=== PATIENT | female | born 1975 | race Caucasian/White ===

== ENCOUNTER 2018-01-10 14:29 | Emergency (ER) | payer OTHER ==
[2018-01-10 15:44] LABS: Urine Appearance Clear; Urine Blood 1+ (Negative); Urine Color Yellow; Urine Ketones Negative (Negative); Urine Protein Negative (Negative); Urine Red Blood Cell Absent (Absent); Urine Specific Gravity 1.011 (1.010-1.030); Urine Urobilinogen Negative (Negative); Urine White Blood Cell Absent (Absent)
--- NOTE | 2018-01-10 16:18 | ED ---
Abdominal Pain/Female - HPI Summary HPI Summary: This patient is a 42 year old F presenting to [facility] with a chief complaint of RUQ pain since last week. Patient states she has had episodes of RUQ pain for months but typically resolves after approximately 12 hours. She thinks it is her gallbladder. Yesterday evening she experienced dizziness as well as nausea, vomiting, and diarrhea. She describes it as a waxing sharp pain, which is aggravated by the consumption of fast food. The patient states a Hx of appendicitis and says this feels similar, but has no prior Hx involving her gallbladder. Pt thinks its her gallbladder. Dizzy room spinning vomiting diarrhea always in the same spot. Usually goes away and the pain has been occurring for a week. The pain waxes and wanes. Sharp Pain increases when she eats, typically fast food. She has had appendicitis but has neer had anything with the gallbladder. - History of Current Complaint Chief Complaint: EDJennifer Stated Complaint: ABD PAIN Time Seen by Provider: 01/10/18 16:10 Hx Obtained From: Patient Onset/Duration: Gradual Onset, Lasting Days, Still Present Severity Initially: Moderate Severity Currently: Moderate Pain Intensity: 6 Pain Scale Used: 0-10 Numeric Location: Discrete At: RUQ Radiates: No Character: Sharp Allergies/Adverse Reactions: Allergies Allergy/AdvReac Type Severity Reaction Status Date / Time Penicillins Allergy Anaphylatic Verified 01/10/18 14:34 Shock PMH/Surg Hx/FS Hx/Imm Hx Cardiovascular History: Denies: Hx Coronary Artery Disease, Hx Hypertension GI History: Reports: Other GI Disorders - Appendicitis - Cancer History Hx Chemotherapy: No Hx Radiation Therapy: No Infectious Disease History: No Infectious Disease History: Denies: Traveled Outside the [place] in Last 30 Days - Family History Known Family History: Negative: Diabetes - Social History Alcohol Use: None Substance Use Type: Reports: None Smoking Status (MU): Never Smoked Tobacco Review of Systems Negative: Fever Positive: Abdominal Pain - RUQ, Vomiting, Diarrhea, Nausea All Other Systems Reviewed And Are Negative: Yes Physical Exam - Summary Physical Exam Summary: VITAL SIGNS: Reviewed. GENERAL: Patient is a well-developed and nourished FEMALE who is lying comfortable in the stretcher. Patient is not in any acute respiratory distress. HEAD AND FACE: No signs of trauma. No ecchymosis, hematomas or skull depressions. No sinus tenderness. EYES: PERRLA, EOMI x 2, No injected conjunctiva, no nystagmus. EARS: Hearing grossly intact. Ear canals and tympanic membranes are within normal limits. MOUTH: Oropharynx within normal limits. NECK: Supple, trachea is midline, no adenopathy, no JVD, no carotid bruit, no c- spine tenderness, neck with full ROM. CHEST: Symmetric, no tenderness at palpation LUNGS: Clear to auscultation bilaterally. No wheezing or crackles. CVS: Regular rate and rhythm, S1 and S2 present, no murmurs or gallops appreciated. ABDOMEN: Soft, RUQ tenderness. No signs of distention. No rebound no guarding, and no masses palpated. Bowel sounds are normal. EXTREMITIES: FROM in all major joints, no edema, no cyanosis or clubbing. NEURO: Alert and oriented x 3. No acute neurological deficits. Speech is normal and follows commands. SKIN: Dry and warm Triage Information Reviewed: Yes Vital Signs On Initial Exam: Initial Vitals Temp Pulse Resp BP Pulse Ox 97.9 F 99 20 130/91 99 01/10/18 14:35 01/10/18 14:35 01/10/18 14:35 01/10/18 14:35 01/10/18 14:35 Vital Signs Reviewed: Yes Diagnostics - Vital Signs Vital Signs Temp Pulse Resp BP Pulse Ox 01/10/18 14:35 97.9 F 99 20 130/91 99 - Laboratory Lab Results: Lab Results 01/10/18 Range/Units 15:30 Urine Color Yellow Urine Appearance Clear Urine pH 6.0 (5-9) Ur Specific Manito 1.011 (1.010-1.030) Urine Protein Negative (Negative) Urine Ketones Negative (Negative) Urine Blood 1+ A (Negative) Urine Nitrate Negative (Negative) Urine Bilirubin Negative (Negative) Urine Urobilinogen Negative (Negative) Ur Leukocyte Esterase Negative (Negative) Urine WBC (Auto) Absent (Absent) Urine RBC (Auto) Absent (Absent) Ur Squamous Epith Cells Present A (Absent) Urine Bacteria Absent (Absent) Urine Glucose Negative (Negative) Result Diagrams: 01/10/18 16:23 01/10/18 16:23 Lab Statement: Any lab studies that have been ordered have been reviewed, and results considered in the medical decision making process. - Ultrasound No standard instances Ultrasound Interpretation: Positive (See Comments) Ultrasound Interpretation Completed By: Radiologist - Gallbladder: Cholethiasis without biliary duct dialtion. Mild gallbladder wall thickening measuring up to 5mm. ED Provider has reviewed this report. - EKG 1700 Cardiac Rate: Bradycardia - 50 BPM EKG Rhythm: Sinus Bradycardia ST Segment: Normal Re-Evaluation - Re-Evaluation First Eval Re-Evaluation Time: 06:15 Change: Unchanged - Discussed results and plan for discharge. Abdominal Pain Fem Course/Dx - Course Course Of Treatment: This patient is a 42 year old F presenting to [facility] with a chief complaint of RUQ pain since last week. Patient states she has had episodes of RUQ pain for months but typically resolves after approximately 12 hours. She thinks it is her gallbladder. Yesterday evening she experienced dizziness as well as nausea, vomiting, and diarrhea. She describes it as a waxing sharp pain, which is aggravated by the consumption of fast food. The patient states a Hx of appendicitis and says this feels similar, but has no prior Hx involving her gallbladder. Pt thinks its her gallbladder. Dizzy room spinning vomiting diarrhea always in the same spot. Usually goes away and the pain has been occurring for a week. The pain waxes and wanes. Sharp Pain increases when she eats, typically fast food. She has had appendicitis but has never had anything with the gallbladder. Blood work without any significant abnormalities, urinalysis is negative for UTI. Pelvic U/S IMPRESSION: Cholelithiasis without biliary duct dilatation. Mild gallbladder wall thickening measuring up to 5 mm. After medications the patients symptoms have resolved. The patient remained stable and without any pain. I discussed all the findings and test results with the patient. Patient was instructed to return to the emergency room immediately if any of the symptoms return or worsens. Plan of care was discussed with the patient and understands and agrees. All questions were answered at patient satisfaction. There were no further complaints or concerns. Lung exam before discharge: CTA B/L. Good air exchange. No wheezing or crackles heard. CVS: S1 and S2 present. No murmurs appreciated. Patient is alert and oriented x 3. Patient is hemodynamically stable. Patient will be discharged home with follow up PCP in the next 2-3 days - Diagnoses Differential Diagnosis: Positive: Gall Bladder Disease, Urinary Tract Infection Provider Diagnoses: Cholelithiasis Discharge - Sign-Out/Discharge Documenting (check all that apply): Patient Departure - Discharge Plan Condition: Stable Disposition: HOME Patient Education Materials: Cholecystitis (ED) Referrals: [facility] [Provider Group] Hollie Antonio MD [Primary Care Provider] - Additional Instructions: Return to ED if experiencing any new or worsening symptoms. - Billing Disposition and Condition Condition: STABLE Disposition: Home - Attestation Statements Document Initiated by Scribe: Yes Documenting Scribe: Rodriguez Prince Provider For Whom Scribe is Documenting (Include Credential): Otilio Holbrook MD Scribe Attestation: Rodriguez Chowdary, scribed for Otilio Holbrook MD on 01/11/18 at 0752. Scribe Documentation Reviewed: Yes Provider Attestation: The documentation as recorded by the Rodriguez campbell accurately reflects the service I personally performed and the decisions made by , Otilio Holbrook MD
[2018-01-10 16:38] LABS: ABS Basophils 0.1 10^3/ul (0-0.2); ABS Eosinophils 0.2 10^3/ul (0-0.6); ABS Lymphocytes 2.2 10^3/ul (1.0-4.8); ABS Monocytes 0.5 10^3/ul (0-0.8); ABS Neutrophils 5.1 10^3/ul (1.5-7.7); ABS Nucleated RBC 0 10^3/ul; Eosinophil % 2.7 % (0-6); Hematocrit 38 % (35-47); Hemoglobin 13.1 g/dl (12.0-16.0); Lymphocyte % 27.1 % (25-47); Mean Corpuscular HGB Conc 35 g/dl (31-36); Mean Corpuscular Hemoglobin 32 pg (27-31); Mean Corpuscular Volume 91 fL (80-97); Nucleated Red Blood Cells % 0.1; Platelet Count 333 10^3/ul (150-450); Red Blood Count 4.12 10^6/ul (4.00-5.40); Red Cell Distribution Width 13 % (10.5-15); White Blood Count 8.2 10^3/ul (3.5-10.8)
--- NOTE | 2018-01-10 16:55 | RAD ---
Indication: Right upper quadrant pain. Real-time sonography of the right upper quadrant was performed. The liver measures up to 17.0 cm in length. It is diffusely increased in echogenicity consistent with hepatic steatosis. The gallbladder demonstrates multiple echogenic foci with mild wall thickening of the gallbladder wall measures 4.5 mm. No abnormal distention is noted. Multiple gallstones are noted. The common duct measures up to 0.6 cm. The right kidney measures 10.9 x 5.8 x 5.1 cm. No hydronephrosis is noted. The pancreas where visualized is unremarkable. IMPRESSION: Cholelithiasis without biliary duct dilatation. Mild gallbladder wall thickening measuring up to 5 mm.
[2018-01-10] MEDS ORDERED: Ketorolac INJ* 30 MG/ML 1 ML VIAL IM ONE (17:11)
[2018-01-10] MEDS ORDERED: HYDROcodone/ACETAMIN 5-325 MG* 1 TAB PO ONE (17:11)
[2018-01-10] MEDS ORDERED: NS 0.9% 1000 ML* 1,000 ML IV ONE (17:11)
[2018-01-10 17:14] LABS: EGFR Non-African American 80.6 (>60)
[2018-01-10 19:15] VITALS: BP 139/72
== END 2018-01-10 19:13 | disposition home or self-care (01) ==
LOC: ED 14:29
DX: K80.20 Calculus of gallbladder without cholecystitis without obstruction (principal); R10.11 Right upper quadrant pain; Z88.0 Allergy status to penicillin; R11.2 Nausea with vomiting, unspecified; R19.7 Diarrhea, unspecified
CPT/HCPCS: 36415; 76705; 80053; 81003; 81015; 83605; 83690; 83735; 85025; 86140; 93005; 96372; 99283; J1885

== ENCOUNTER 2018-02-04 09:52 | Observation (INO) | payer OTHER ==
--- NOTE | 2018-02-04 11:06 | ED ---
Abdominal Pain/Female - HPI Summary HPI Summary: A 42 y/o F with known dx: gallstones presents to ED with c/o RUQ abd pain that is radiating to her back worsening this AM. Her pain is rated as 7 out of 10. Pt was seen in [facility] on 01/10/18 for similar sx, dx cholelithiasis without acute cholecystitis. Pt is scheduled for gallbladder surgery on 02/17/2018 but pain has worsened so she returned to the ED. Associated sx: hot flashes, mild SOB, nausea, TITUS, lightheadedness, itching with urination. Denies fever, CP, vomiting, vaginal discharge. She had a few bites of oatmeal today at 0630. She has not taken any pain meds today. Sometimes takes ibuprofen for her chronic back pain and arthritis. Vital signs while in room: HR 71 bpm, BP 144/105. Home Medications Medication Instructions Recorded Confirmed Type NK [No Home Medications Reported] 02/04/18 02/04/18 History - History of Current Complaint Chief Complaint: EDAbdPain Stated Complaint: ABD PAIN Hx Obtained From: Patient, Medical Records - ED records 01/10/18 Hx Last Menstrual Period: 01/26/18 ?: No Onset/Duration: Gradual Onset, Lasting Hours, Still Present Timing: Constant Severity Initially: Moderate Severity Currently: Moderate Pain Intensity: 7 Pain Scale Used: 0-10 Numeric Location: Discrete At: RUQ Radiates: Yes Radiates to: Back Character: Other: - Aching Aggravating Factor(s): Nothing Alleviating Factor(s): Nothing Associated Signs and Symptoms: Positive: Dizzy - "lightheaded", Urinary Symptoms - itching with urination, Nausea, Other: - pos: hot flashes, TITUS, mild SOB,. Negative: Fever, Chest Pain, Vaginal Discharge, Vomiting Allergies/Adverse Reactions: Allergies Allergy/AdvReac Type Severity Reaction Status Date / Time Penicillins Allergy Anaphylatic Verified 02/04/18 12:13 Shock PMH/Surg Hx/FS Hx/Imm Hx Previously Healthy: No Cardiovascular History: Denies: Hx Coronary Artery Disease, Hx Hypertension GI History: Reports: Other GI Disorders - Appendicitis, Gallstones Musculoskeletal History: Reports: Hx Arthritis, Hx Back Problems - Cancer History Hx Chemotherapy: No Hx Radiation Therapy: No - Surgical History Surgery Procedure, Year, and Place: Tonsillectomy, appy, wisdom teeth Infectious Disease History: No Infectious Disease History: Denies: Traveled Outside the [place] in Last 30 Days - Family History Known Family History: Positive: Diabetes - multiple Family History: father - CA and cholecystectomy in his 40s - Social History Occupation: Employed Full-time, Student Lives: Alone Alcohol Use: None Hx Substance Use: No Substance Use Type: Reports: None Hx Tobacco Use: No Smoking Status (MU): Never Smoked Tobacco Review of Systems Positive: Other - pos: hot flashes. Negative: Fever Negative: Chest Pain Positive: Shortness Of Breath - mild Positive: Abdominal Pain, Nausea. Negative: Vomiting Positive: other - pos: itching with urination. Negative: discharge - vaginal Skin: Negative Neurological: Other - pos: lightheadedness Positive: Headache Psychological: Normal All Other Systems Reviewed And Are Negative: Yes Physical Exam - Summary Physical Exam Summary: Appearance: Ill-appearing, moderate pain distress, appears uncomfortable, obese , afebrile Skin: Warm, color reflects adequate perfusion, dry Head: Normal Head/Face inspection, atraumatic Eyes: Conjunctiva clear ENT: Normal inspection Neck: Supple, no nodes, no JVD Respiratory: Lungs clear, normal breath sounds, no respiratory distress Cardio: RRR, No murmur, pulses normal, brisk capillary refill Abdomen: Soft, RUQ tenderness with + Palacios's sign, no masses, non-distended, no CVA tenderness Bowel sounds: Present Musculoskeletal: Strength Intact/ROM intact, no calf tenderness, no edema. Psychological: Normal Neuro: Alert, muscle tone normal, no focal deficit Triage Information Reviewed: Yes Vital Signs On Initial Exam: Initial Vitals Temp Pulse Resp BP Pulse Ox 98.0 F 74 16 142/90 100 02/04/18 10:00 02/04/18 10:00 02/04/18 10:00 02/04/18 10:00 02/04/18 10:00 Vital Signs Reviewed: Yes Diagnostics - Vital Signs Vital Signs Temp Pulse Resp BP Pulse Ox 02/04/18 10:00 98.0 F 74 16 142/90 100 - Laboratory Result Diagrams: 02/04/18 11:50 02/04/18 11:50 Lab Statement: Any lab studies that have been ordered have been reviewed, and results considered in the medical decision making process. - Radiology CXR Radiology Interpretation Completed By: Radiologist Summary of Radiographic Findings: IMPRESSION: No radiographic evidence of acute cardiopulmonary disease. ED provider has reviewed this report. - Ultrasound No standard instances Ultrasound Interpretation Completed By: Radiologist Summary of Ultrasound Findings: GALLBLADDER U/S: IMPRESSION: 1. CHOLELITHIASIS WITH GALLBLADDER WALL THICKENING AND A POSITIVE SONOGRAPHIC PALACIOS'S SIGN, CONCERNING FOR ACUTE CHOLECYSTITIS IN THE CORRECT CLINICAL SETTING. 2. FATTY INFILTRATION OF THE LIVER. ED provider has reviewed this report. - EKG 1144 Cardiac Rate: NL - 70bpm EKG Rhythm: Sinus Rhythm ST Segment: Non-Specific Ectopy: None EKG Comparison: No Significant Change - from EKG on 01/10/18 Summary of EKG Findings: An EKG at [address], nml QTc, and nml axis. Re-Evaluation - Re-Evaluation 1 Re-Evaluation Time: 11:49 Change: Unchanged Comment: Reviewing EKG with pt, nothing abnormal. 2 Re-Evaluation Time: 12:00 Change: Unchanged Comment: Updating pt with U/S results. 3 Re-Evaluation Time: 13:00 Change: Unchanged Comment: Santiago Erickson, surgery PA, at bedside with pt. Dr. Chappell, surgery approves pt for admission. Abdominal Pain Fem Course/Dx - Course Course Of Treatment: Pt is a 42 y/o F with known dx: gallstones presents RUQ pain radiating to her back and worsening this AM. She was seen in [facility] on 01/10 for similar sx. Pt is scheduled for gallbladder surgery on 02/17/2018. Associated sx: hot flashes, mild SOB, nausea, TITUS, lightheadedness, itching with urination. UA shows 1+ blood, squamous epithelia cells present. Lab work shows depressed lymphocytes %, CRP elevated at 17.36, alkaline phosphatase: 107 and depressed amylase. Lipase is normal. WBC count is normal. AST/ALT and T Bili all normal. B HCG is neg. Troponin is neg. Gallbladder U/S shows "CHOLELITHIASIS WITH GALLBLADDER WALL THICKENING AND A POSITIVE SONOGRAPHIC PALACIOS'S SIGN, CONCERNING FOR ACUTE CHOLECYSTITIS IN THE CORRECT CLINICAL SETTING. 2. FATTY INFILTRATION OF THE LIVER." CXR is negative. EKG shows NSR. Santiago Erickson, surgery PA, at bedside with pt. Dr. Chappell, surgery approves pt for admission. Allergies noted, high blood pressure noted, UA reviewed. Pt medications reviewed this visit. - Diagnoses Differential Diagnosis: Positive: ACS, Appendicitis, Bowel Obstruction, Gall Bladder Disease, Hepatitis, IA, Pancreatitis, Renal Colic, Urinary Tract Infection Provider Diagnoses: Acute cholecystitis, Elevated blood pressure reading without diagnosis of hypertension - Provider Notifications Discussed Care Of Patient With: Bib Chappell - surgery Time Discussed With Above Provider: 12:16 Instructed by Provider To: MD Will See In ED Discharge - Sign-Out/Discharge Documenting (check all that apply): Patient Departure - ADMIT - Discharge Plan Condition: Stable Disposition: ADMITTED TO [facility] - Billing Disposition and Condition Condition: STABLE Disposition: Admitted to [facility] - Attestation Statements Document Initiated by Scribe: Yes Documenting Scribe: Yina Chaney Provider For Whom Scribe is Documenting (Include Credential): Dr. Nissa Malloy MD Scribe Attestation: Yina Chowdary, scribed for Dr. Nissa Malloy MD on 02/11/18 at 0027. Scribe Documentation Reviewed: Yes Provider Attestation: The documentation as recorded by the Yina campbell accurately reflects the service I personally performed and the decisions made by me, Dr. Nissa Malloy MD
[2018-02-04] MEDS ORDERED: NS 0.9% 1000 ML* 2,000 ML IV ONE (11:09)
[2018-02-04] MEDS ORDERED: Ondansetron ODT TAB* 4 MG SL ONE (11:14)
[2018-02-04] MEDS ORDERED: Ondansetron INJ* 2 MG/ML VIAL ONE ×2 (11:55→18:38)
[2018-02-04] MEDS ORDERED: Morphine VIAL* 4 MG/ML VIAL (1 ml vial) IV ONE ×2 (11:56→11:58)
[2018-02-04] MEDS ORDERED: Ondansetron INJ* 2 MG/ML VIAL IV ONE (11:58)
[2018-02-04 12:08] LABS: ABS Basophils 0.1 10^3/ul (0-0.2); ABS Eosinophils 0.1 10^3/ul (0-0.6); ABS Lymphocytes 1.7 10^3/ul (1.0-4.8); ABS Monocytes 0.4 10^3/ul (0-0.8); ABS Neutrophils 6.4 10^3/ul (1.5-7.7); ABS Nucleated RBC 0 10^3/ul; Eosinophil % 1.3 % (0-6); Hematocrit 40 % (35-47); Hemoglobin 13.8 g/dl (12.0-16.0); Lymphocyte % 19.2 % (25-47); Mean Corpuscular HGB Conc 34 g/dl (31-36); Mean Corpuscular Hemoglobin 31 pg (27-31); Mean Corpuscular Volume 91 fL (80-97); Mean Platelet Volume 8.1 fL (7.4-10.4); Nucleated Red Blood Cells % 0; Platelet Count 343 10^3/ul (150-450); Red Blood Count 4.39 10^6/ul (4.00-5.40); Red Cell Distribution Width 13 % (10.5-15); White Blood Count 8.7 10^3/ul (3.5-10.8)
[2018-02-04 12:26] LABS: EGFR Non-African American 85.7 (>60)
[2018-02-04 12:40] LABS: Urine Appearance Clear; Urine Blood 1+ (Negative); Urine Color Yellow; Urine Ketones Negative (Negative); Urine Protein Negative (Negative); Urine Red Blood Cell Trace(0-2/hpf) (Absent); Urine Specific Gravity 1.016 (1.010-1.030); Urine Urobilinogen Negative (Negative); Urine White Blood Cell Trace(0-5/hpf) (Absent)
[2018-02-04] MEDS ORDERED: Morphine VIAL* 4 MG/ML VIAL (1 ml vial) IV PRN (13:29)
[2018-02-04] MEDS ORDERED: ceFAZolin 1 GM VIAL(*) 2 GM in NS 0.9% 100 ML* 100 ML IVPB ONE (13:31)
[2018-02-04] MEDS ORDERED: Ondansetron INJ* 2 MG/ML VIAL IV PRN ×2 (13:31→20:46)
[2018-02-04] MEDS: Morphine VIAL* 4 MG/ML VIAL (1 ml vial) IV PRN (16:39)
--- NOTE | 2018-02-04 16:58 | HP ---
AMENDED REPORT NOW INCLUDES DESIGNATED COSIGNER CC: Dr. Antonio, Gerald Beard * DATE OF ADMISSION: 02/04/2018. ATTENDING PHYSICIAN: Dr. Bib Chappell * (JEANNETTE Harrison dictating). CHIEF COMPLAINT: Abdominal pain. HISTORY OF PRESENT ILLNESS: This is a 42-year-old, generally healthy female who for the past two years has experienced intermittent right upper quadrant pain. Pain typically follows meals, though she does not associate it with specific foods. It tends to radiate to the right scapula and is associated with nausea and sometimes vomiting and diarrhea. Recently the frequency and intensity of attacks has increased such that she was seen in the ED on 2017 and a gallbladder ultrasound at that time showed gallstones as well as thickened gallbladder wall up to 5 mm. She was apparently instructed to follow- up with surgical consultation. She states that in the interim she has had ongoing continuous low to mid grade abdominal discomfort, but with another attack of severe pain last evening with associated nausea, vomiting, diarrhea, and chills. She denies fever. She denies dark urine. She has received some Morphine in the ED and is feeling somewhat better at the present time. There is a positive family history of gallbladder disease in her father. PAST MEDICAL HISTORY: Obesity, arthritis of the lower back. PAST SURGICAL HISTORY: Tonsillectomy, apparent laparoscopic appendectomy, laparoscopies for ovarian cysts, as well as tubal ligation. No reported surgical or anesthesia problems. CURRENT MEDICATIONS: Ibuprofen [id number] two tablets once daily prn pain or Tylenol prn for pain. ALLERGIES: PENICILLIN (DIFFICULTY BREATHING). FAMILY HISTORY: Negative for anesthesia problems, bleeding or clotting disorders. SOCIAL HISTORY: The patient is recently . She lives with a roommate. She does smoke between two and three cigarettes per day. She drinks alcohol occasionally, but not daily. She denies other recreational drug use. REVIEW OF SYSTEMS: General: No recent constitutional symptoms or acute illnesses, other than described in the HPI. She did have some weight loss early in the period of separation from her , but is now a full-time student and has recently regained some of her lost weight. HEENT: No problems reported. Cardiovascular: No history of chest pain, palpitations, or heart murmur. Respiratory: No history of asthma or shortness of breath. GI: As above per HPI. No additions. : No problems reported. Specifically, no dysuria or hematuria. 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 Endocrine: No diabetes or thyroid dysfunction. PHYSICAL EXAMINATION GENERAL: Well-nourished, obese female in no acute distress. She appears comfortable at the present time. SKIN: Warm and dry. No suspicious rashes or lesions noted. VITAL SIGNS: Height 5'4", weight 235 pounds. Temperature 98, blood pressure 142/90, pulse 74, respirations 16. HEENT: Pupils equal and round, reactive. EOM's intact. No conjunctival pallor or scleral icterus. Oropharynx: Mucus membranes dry. Teeth in good repair. No intraoral lesions. NECK: No lymphadenopathy, thyromegaly, or masses. LUNGS: Clear to auscultation. No rales or wheezes. HEART: Regular rate and rhythm, though heart tones are distant. No murmur appreciated. BREASTS: Not examined. ABDOMEN: Obese, soft with well-localized tenderness in the right upper quadrant with a positive Palacios sign. The remainder of the abdomen is soft, nontender. No peritoneal signs. No palpable masses. BACK: No spinous process. Mild CVA tenderness on the right. EXTREMITIES: No edema. GENITALIA: Not done. RECTAL: Not done. NEUROLOGIC: Grossly intact. LABORATORY DATA: Notable for white blood cell count of 8,700, hemoglobin 13.8 , differential is relatively normal. BUN, creatinine, and electrolytes are normal, as is lactic acid. Alkaline phosphatase is mildly elevated at 107. Transaminases are normal. CRP is elevated at 17. Amylase and lipase are normal. HCG is negative. Urinalysis positive for 1+ blood. Ultrasound repeated today shows fatty changes of the liver and gallbladder wall thickening at 5 mm with a positive sonographic Palacios sign and gallstones. IMPRESSION: Acute biliary colic; cholecystitis. PLAN: Admission for IV hydration and pain control. Case was discussed with Dr. Chappell and she is in agreement to proceed with laparoscopic cholecystectomy. Dr. Chappell will review with her the indications, risks, benefits, and alternatives. JEANNETTE HARRISON [id number]/[facility] #: [id number] [facility]
[2018-02-04] MEDS ORDERED: Clindamycin 900 MG/D5W BAG(*) 900 MG/50 ML BAG IVPB ONE (18:02)
[2018-02-04] MEDS ORDERED: Bupivacaine 0.25% W/EPI* 10 ML SDV ONE (18:24)
[2018-02-04] MEDS ORDERED: Bupivacaine 0.5% W/EPI SDV* 30 ML VIAL ONE (18:35)
[2018-02-04] MEDS ORDERED: Lidocaine 2% PF * 5 ML VIAL ONE (18:38)
[2018-02-04] MEDS ORDERED: Cisatracurium* 2 MG/ML MDV 5 ML ONE (18:38)
[2018-02-04] MEDS ORDERED: Midazolam* 1 MG/ML 5 ML VIAL (5 MG) ONE (18:38)
[2018-02-04] MEDS ORDERED: Dexamethasone IV* 4 MG/ML 1 ML (4 MG) ONE (18:38)
[2018-02-04] MEDS ORDERED: fentaNYL* 50 MCG/ML 2 ML VIAL (100 MCG VIAL) ONE ×2 (18:38→20:37)
[2018-02-04] MEDS ORDERED: Ketorolac INJ* 30 MG/ML 1 ML VIAL ONE (18:38)
[2018-02-04] MEDS ORDERED: Propofol* 10 MG/ML 20 ML BTL IV PUSH ONE (18:38)
[2018-02-04] MEDS ORDERED: Naloxone* 0.4 MG/ML 1 ML VIAL IV PRN (20:46)
[2018-02-04] MEDS ORDERED: fentaNYL* 50 MCG/ML 2 ML VIAL (100 MCG VIAL) IV PRN (20:46)
[2018-02-04] MEDS ORDERED: Neostigmine Methylsulfate* 1 MG/ML 10 ML VIAL (1 mg/ml) ONE (20:50)
[2018-02-04] MEDS ORDERED: Glycopyrrolate IV* 0.2 MG/ML 1 ML VIAL ONE (20:50)
--- NOTE | 2018-02-04 21:09 | OP ---
Operative Report - Blank - Operative Report Date of Operation: 02/04/18 Note: Brief Operative Note Preop Dx: Acute calculous cholecystitis Postop Dx: same Procedure: Laparoscopic subtotal cholecystectomy Anesthesia: GET Surgeon: Ta All Around Gear Machine Operator: JEANNETTE Erickson Fluids: 1600 ml crystalloid EBL: 75 ml Specimen: portion gallbladder Drains: 1 SARA Findings: dictated
[2018-02-05] MEDS: Morphine VIAL* 4 MG/ML VIAL (1 ml vial) IV PRN ×2 (00:25→14:50)
[2018-02-05] MEDS ORDERED: Acetaminophen TAB* 325 MG PO PRN (01:33)
[2018-02-05] MEDS: Ciprofloxacin 400MG IVPREMIX(* 400 MG/200 ML BAG IVPB SCH ×2 (02:07→14:38)
[2018-02-05] MEDS: metroNIDAZOLE IV 500 MG/100ML* 500 MG/100 ML BAG IVPB SCH ×3 (03:49→19:38)
--- NOTE | 2018-02-05 14:52 | OP ---
DATE OF OPERATION: 02/04/18 - ROOM #412 DATE OF : 73 SURGEON: Bib Chappell MD. CABLE TOOL OPERATOR: JEANNETTE Harrison ANESTHESIOLOGIST: Dr. Moulton. ANESTHESIA: General with local. PRE-OP DIAGNOSIS: Acute calculous cholecystitis. POST-OP DIAGNOSIS: Acute and calculous cholecystitis. OPERATIVE PROCEDURE: Laparoscopic subtotal cholecystectomy. IV FLUIDS: 1.6 L of crystalloid. ESTIMATED BLOOD LOSS: 75 cc. SPECIMENS: Gallbladder with contained gallstones. WOUND CLASSIFICATION: 4. DRAINS: A #10 SARA drain in the right upper quadrant. BRIEF HISTORY: Ms. aKylene Carranza is a 42-year-old woman who has long history of gallstones and gallstone related discomfort. Over the past 4 to 6 weeks, she was having more persistent and chronic pain in the right upper quadrant. Although she has had no fevers and has been trying to follow a low-fat diet, her symptoms worsened. She presented to the emergency room. She was noted to have a normal white blood cell count and no fever; however, an ultrasound that showed a thickened gallbladder wall with gallstones and on exam, she had exquisite right upper quadrant abdominal pain. She is now being taken to the operating room for a cholecystectomy for her acute calculous cholecystitis. The procedure was discussed with her and the risks are but not limited to bleeding, infection, intraabdominal abscess formation, injury to peritoneal and retroperitoneal structures, common bile duct injury requiring further reconstruction, bile leak, abscess, possibility of an open procedure, and the risks of anesthesia were all explained. FINDINGS: The patient had the severe [id number] cholecystitis with extremely thickened gallbladder wall and a significant amount of inflammation in the infundibular area of the gallbladder. I did not remove the entire gallbladder leaving a small portion of the infundibulum of the gallbladder behind as I felt it was unwise to pursue dissection down to the junction with the cystic duct due to the amount of inflammation. Gallstones and significant portion of the gallbladder was removed and sent for specimen. I did not close the remnant portion of the infundibulum of the gallbladder and this was left open. A #10 SARA drain was placed. No gallstones were left behind. DESCRIPTION OF PROCEDURE: Written informed consent was obtained, the abdomen was marked with inedible ink and preoperative antibiotics were administered. The patient was taken to the operating room and placed in the supine position. Sequential compression devices and a warming blanket were applied. General anesthesia was administered and the abdomen was prepped and draped in the usual sterile fashion. Time-out verification was completed. Initially, a small transverse incision was made just above the umbilicus. The peritoneal cavity was entered under direct vision. A 12-mm blunt port was inserted in the epigastric position and two 5-mm ports were placed in the right side of the abdominal wall. The gallbladder was identified. It was distended and somewhat thick walled and tense and we did decompress the gallbladder using an 18-gauge spinal needle of about 60 cc of a very thin, whitish greenish bile, allowing us to grasp the gallbladder and elevate it up over the liver bed. There were some omental adhesions that were taken down sharply to expose the infundibulum, which once again was thickened and had a significant rind surrounding it. I initially started with dividing the rind with a cautery and peeling this off the infundibulum of the gallbladder working downwards towards the cystic duct- gallbladder junction. After working fairly tediously and in addition identifying the cystic artery, which I did clip and divide as it entered the gallbladder, I was unable to safely dissect further down on the infundibulum due to dense chronic inflammation in an attempt to identify the cystic duct where it began to taper and at this point I made a decision to proceed with a subtotal cholecystectomy. I then opened the gallbladder on the anterior surface over the infundibulum. There was some additional drainage of bile and upon opening the gallbladder more distally, we removed 5 to 6 irregular smooth green stones. I do not believe that stones were left behind. The infundibulum was then circumferentially divided and the gallbladder was removed from the liver bed, leaving some of its posterior wall on the liver bed due to the inflammatory process, but was taken up to the top and then placed in an Endo Catch bag. We then evaluated the remnant gallbladder infundibulum. There were no stones in the neck that I could milk up and I made a decision to leave this open. There was no evidence of retrograde bile drainage. The liver bed was then irrigated. Hemostasis was assured with cautery. The gallbladder was removed from the abdominal cavity in an Endo Catch bag. A #10 SARA drain was then placed in the right upper quadrant after thorough irrigation. This was brought out through the lateral stab wound on the right side. All ports were removed under direct vision of the camera. The umbilical fascia was closed with interrupted 0 Vicryl suture. The skin at all 3 incisions were approximated with subcuticular 4-0 Vicryl suture. Steri-Strips were applied. The patient tolerated the procedure well, was taken to the recovery room in stable condition. [id number] #: [id number] MTDAna
--- NOTE | 2018-02-05 15:07 | PN ---
Progress Note - Progress Note Date of Service: 02/05/18 SOAP: Subjective: Pt seen at 0830 this morning She is doing well-pain is adequately controlled. Tolerating some po Objective: Temp Pulse Resp BP Pulse Ox 98.4 F 75 20 109/67 95 02/05/18 08:50 02/05/18 08:50 02/05/18 14:50 02/05/18 08:50 02/05/18 11:40 Intake & Output 02/03/18 02/04/18 02/05/18 02/06/18 06:59 06:59 06:59 06:59 Intake Total 1780 600 Output Total 120 Balance 1660 600 Weight 231 lb Intake: IV Fluids 1780 CLINDAMYCIN 900MG 100 LR 1680 Oral 0 600 Output: SARA #1 45 Urine 0 Estimated Blood Loss 75 Other: Estimated Void Medium Date of Last Bowel 02/04/18 Movement # Bowel Movements 0 # Voids 1 PEX: Comfortable Lungs are clear Abd is soft and non-distended. Bowel sounds are present. Incisions clean and dry. SARA in place, SG fluid, non-bilious fluid in bulb Assessment: S/P lap choly for acute calculous cholecystitis--drain in Plan: 48 hours of IV abx SARA drain Advance diet Increase activity.
[2018-02-05] MEDS: HYDROcodone/ACETAMIN 5-325 MG* 1 TAB PO PRN ×2 (16:55→20:51)
[2018-02-06] MEDS: Ciprofloxacin 400MG IVPREMIX(* 400 MG/200 ML BAG IVPB SCH (02:22)
[2018-02-06] MEDS: metroNIDAZOLE IV 500 MG/100ML* 500 MG/100 ML BAG IVPB SCH ×2 (03:34→10:56)
--- NOTE | 2018-02-06 09:22 | PN ---
Progress Note - Progress Note Date of Service: 02/06/18 SOAP: Subjective: Doing well, tolerating po Pain is controlled Ambulating in halls, ready to go home Objective: Temp Pulse Resp BP Pulse Ox 97.4 F 49 16 154/87 97 02/06/18 04:49 02/06/18 04:49 02/06/18 04:49 02/06/18 04:49 02/06/18 04:49 Intake & Output 02/04/18 02/05/18 02/06/18 02/07/18 06:59 06:59 06:59 06:59 Intake Total 1780 1240 Output Total 120 35 Balance 1660 1205 Weight 231 lb Intake: IV Fluids 1780 400 CLINDAMYCIN 900MG 100 LR 1680 Oral 0 840 Output: SARA #1 45 35 Urine 0 Estimated Blood Loss 75 Other: Estimated Void Medium Date of Last Bowel 02/04/18 Movement # Bowel Movements 0 # Voids 1 0 PEX: Comfortable Lungs are clear Abd is soft and non-distended. Bowel sounds are present. Incisions are clean and dry. SARA in place with small amount of SG fluid, non-bilious Ext without edema Assessment: S/P lap choly for acute calculous choleystitis Doing well Plan: D/C home today No oral antibiotics Leave SARA in, instructions given for management. Follow up in office 02/10 for drain removal if nonbilious Instructions given Narcotic analgesic sparingly.
[2018-02-06 12:18] VITALS: BP 138/68
[2018-02-06] MEDS: HYDROcodone/ACETAMIN 5-325 MG* 1 TAB PO PRN (13:20)
--- NOTE | 2018-02-06 21:42 | DS ---
DISCHARGE SUMMARY: DATE OF ADMISSION: 02/04/18 DATE OF DISCHARGE: 02/06/18 PRINCIPAL DIAGNOSIS: Acute calculous cholecystitis. PROCEDURE PERFORMED: Laparoscopic subtotal cholecystectomy with drainage. CONDITION ON DISCHARGE: Good. DISPOSITION: Home. INSTRUCTION ON DISCHARGE: The patient did not require further oral antibiotics. She was given a prescription for Vicodin for discomfort, but only minimal amount for use sparingly. She was instructed to use nonsteroidals as well as plain Tylenol for pain. She was discharged to home with the Eric- Julien drain in place and instructions were given. A follow-up appointment was made on 02/10/18 in the office of planned drain removal. Wound care and activity restrictions were also given. HISTORY OF PRESENT ILLNESS: Ms. Kaylene Carranza is a 42-year-old woman who is morbidly obese, who has had problems with epigastric and right upper quadrant abdominal pain for almost 18 months. She had been seen in the emergency room six weeks prior to this admission and an ultrasound confirmed gallstones with mildly thickened gallbladder wall and it was recommended that she obtain surgical opinion regarding cholecystectomy. Unfortunately, her pain persisted and became more severe. She presented to the emergency room. She was noted to have significant pain in the right upper quadrant. They did an ultrasound, it showed findings consistent with acute calculous cholecystitis. HOSPITAL COURSE: The patient was seen in surgical consultation and felt to have a acute calculous cholecystitis. She underwent a laparoscopic cholecystectomy on the day of admission. The findings at surgery were significant and severe acute and chronic inflammation with an inability to completely remove the entire gallbladder with the stones and majority of the gallbladder removed. The area was drained. Postoperatively, she did well. She was maintained on 48 hours of IV antibiotics. She remained afebrile. The SARA drain was bilious, but she was planned for sent home as to drain adequately any bilious drainage that may present in the next several days. Wound instructions were given and she was discharge d to home on postoperative day #2. [id number]/[facility] #: [id number] ALLISON
== END 2018-02-06 13:30 | disposition home or self-care (01) ==
LOC: ED 09:52 → MED 16:01
PROVIDERS: ADMIT Surgery; ATTEND Surgery
DX: K80.00 Calculus of gallbladder with acute cholecystitis without obstruction (principal); K76.0 Fatty (change of) liver, not elsewhere classified; R10.9 Unspecified abdominal pain; E66.9 Obesity, unspecified; Z88.0 Allergy status to penicillin; R06.02 Shortness of breath; R51 Headache; R03.0 Elevated blood-pressure reading, without diagnosis of hypertension
CPT/HCPCS: 36415; 71046; 76705; 80053; 81003; 81015; 82150; 83605; 83690; 83735; 84484; 84702; 85025; 85610; 86140; 87086; 88304; 93005; 96365; 96366; 96367; 96375; 96376; 99283; A9270-GY; G0378; J0744; J1100; J1885; J2250; J2270; J2405; J2704; J2710; J3010; J3490

== ENCOUNTER 2018-02-22 05:06 | Inpatient (IN) | payer OTHER ==
--- NOTE | 2018-02-22 05:10 | ED ---
Abdominal Pain/Female - HPI Summary HPI Summary: This patient is a 42 year old F brought in by ambulance to [facility] with a chief complaint of worsening upper abdominal pain with nausea diarrhea, and vomiting for the past two days. Pain is 8/10 upon triage. Patient had cholecystectomy on 02/04/18. Patient reports dysuria. Patient took Hydrocodone yesterday morning with slight improvement but symptoms returned. - History of Current Complaint Chief Complaint: EDAbdPain Stated Complaint: ABD PAIN Hx Obtained From: Patient Hx Last Menstrual Period: 01/26/18 Onset/Duration: Gradual Onset, Lasting Days Timing: Constant Severity Initially: Moderate Severity Currently: Severe Pain Intensity: 8 Pain Scale Used: 0-10 Numeric Location: Discrete At: RUQ, Discrete At: LUQ Associated Signs and Symptoms: Positive: Urinary Symptoms, Nausea, Vomiting, Diarrhea Allergies/Adverse Reactions: Allergies Allergy/AdvReac Type Severity Reaction Status Date / Time Penicillins Allergy Anaphylatic Verified 02/22/18 05:10 Shock PMH/Surg Hx/FS Hx/Imm Hx Cardiovascular History: Denies: Hx Coronary Artery Disease, Hx Hypertension GI History: Reports: Other GI Disorders - Appendicitis, Gallstones Musculoskeletal History: Reports: Hx Arthritis, Hx Back Problems Sensory History: Reports: Hx Contacts or Glasses Denies: Hx Hearing Aid Opthamlomology History: Reports: Hx Contacts or Glasses - Cancer History Hx Chemotherapy: No Hx Radiation Therapy: No - Surgical History Surgery Procedure, Year, and Place: cholecystectomy, Tonsillectomy, appy, wisdom teeth - Family History Known Family History: Positive: Diabetes - multiple Family History: father - CA and cholecystectomy in his 40s - Social History Alcohol Use: None Hx Substance Use: No Substance Use Type: Reports: None Hx Tobacco Use: No Smoking Status (MU): Never Smoked Tobacco Review of Systems Negative: Fever Positive: Abdominal Pain, Vomiting, Diarrhea, Nausea Positive: dysuria All Other Systems Reviewed And Are Negative: Yes Physical Exam - Summary Physical Exam Summary: Appearance: Well-appearing, Well-nourished, Skin: Warm, dry, no obvious rash Eyes: sclera anicteric, no conjunctival pallor ENT: mucous membranes moist, pharynx appears normal Neck: Supple, nontender Respiratory: Clear to auscultation, no signs of respiratory distress Cardiovascular: Normal S1, S2. No murmurs. Normal distal pulses in tibial and radial bilaterally. Abdomen: Soft, upper abdominal tenderness without guarding or rebound, normal active bowel sounds present Musculoskeletal: Normal, Strength/ROM Intact Neurological: A&Ox3, awake and alert, mentation is normal, speech is fluent and appropriate Psychiatric: affect is normal, does not appear anxious or depressed Triage Information Reviewed: Yes Vital Signs Reviewed: Yes Diagnostics - Laboratory Result Diagrams: 02/22/18 06:11 02/22/18 06:11 Lab Statement: Any lab studies that have been ordered have been reviewed, and results considered in the medical decision making process. Abdominal Pain Fem Course/Dx - Course Course Of Treatment: 42 year old F brought in by ambulance to [facility] with a chief complaint of worsening upper abdominal pain with nausea diarrhea, and vomiting for the past two days. Pain is 8/10 upon triage. Patient had cholecystectomy on 02/04/18. Patient reports dysuria. Bloodwork reveals WBC of 14.8. Patient is given Zofran, Morphine, and IVF. Patient is signed out to Dr. Holbrook awaiting results of UA, stool sample, and CT A/P. - Diagnoses Provider Diagnoses: Upper abdominal pain Discharge - Sign-Out/Discharge Documenting (check all that apply): Sign-Out Patient Signing out patient TO: Otilio Holbrook - UA, stool sample, CT A/P - Discharge Plan Condition: Stable Disposition: ADMITTED TO [facility] - Billing Disposition and Condition Condition: STABLE Disposition: Admitted to [facility] - Attestation Statements Document Initiated by Scribe: Yes Documenting Scribe: Sadaf Cullen Provider For Whom Scribe is Documenting (Include Credential): Geoffrey Hernandez MD Scribe Attestation: ISadaf, scribed for Geoffrey Hernandez MD on 02/23/18 at 0020. Scribe Documentation Reviewed: Yes Provider Attestation: The documentation as recorded by the scribeSadaf accurately reflects the service I personally performed and the decisions made by me, Geoffrey Hernandez MD
[2018-02-22] MEDS ORDERED: Ondansetron INJ* 2 MG/ML VIAL IV ONE (05:12)
[2018-02-22] MEDS ORDERED: Morphine VIAL* 4 MG/ML VIAL (1 ml vial) IV ONE (05:12)
--- OUTSIDE RECORDS SUMMARY | 2018-02-22 05:19 | XMS REPORT ---
:1975 External Reference #:[id number] Author Organization [facility] Address [address] [place] [address] Phone [phone] Care Team Providers Name Role Phone [facility] Primary Care Physician Unavailable Payers Type Date Identification Numbers Payment Provider Subscriber Commercial Policy Number: [id number] Osvaldo Carranza PayID: [id number] [place] [id number] Problems Description No Information Social History Type Date Description Comments Marital Status ETOH Use Rarely consumes alcohol Smoking Light tobacco smoker (10 or fewer cigarettes/day) Allergies, Adverse Reactions, Alerts Date Description Reaction Status Severity Comments 02/06/2018 Penicillin Anaphylaxis active Medications Medication Date Status Form Strength Qnty SIG Indications Ordering Provider Ibuprofen Active Tablets 600mg one tablet Unknown 0 by mouth q6 as needed pain Tylenol Active Tablets 325mg take 2 tabs Unknown 0 as needed every 6 hours for pain/fever Vital Signs Date Vital Result Comment 02/10/2018 Height 64.5 inches 5'4.50" Weight 230.00 lb Heart Rate 78 /min BP Systolic Sitting 138 mmHg BP Diastolic Sitting 80 mmHg Respiratory Rate 18 /min Body Temperature 97.2 F BMI (Body Mass Index) 38.9 kg/m2 Results Test Date Test Result H/L Range Note Laboratory test 02/04/2018 Surgical Pathology SEE RESULT BELOW 1 finding 1 SEE RESULT BELOW Name: ZOIE CARRANZA : [address]: Bib Chappell MD Acct: [id number] Unit: [id number] AGE: 42 Location: [place] [address] Re02/04/18 SEX: F Status: ADM Carolyn SPEC: [id number] ERMA: 02/04/18- [facility] DR: Bib Chappell MD REQ: [id number] RECD: 02/04/18 STATUS: SOUT _ ORDERED: LEVEL 3 FINAL DIAGNOSIS Gallbladder, cholecystectomy: -- Acute cholecystitis. -- Cholelithiasis. PRE-OPERATIVE DIAGNOSIS Acute cholecystitis GROSS DESCRIPTION The specimen is received in formalin labeled, gallbladder and stones, and consists of an 8.5 x 3.5 x 2.1 cm previously disrupted gallbladder. The serosa is mottled mckee- pink to red-brown rubbery and predominantly smooth with a few focal fibromembranous adhesions. The mucosa is reticulated red-brown with a small amount of adherent red-brown blood clot and the wall thickness measures up to 0.6 cm. Received separately in the same container are a few yellow-brown intact and fragmented smooth multifaceted choleliths ranging from 0.6 cm to 1.1 cm in greatest dimension. Agency Sales Representative sections, one cassette. Signed by and Reported on: Dianna Richard MD 02/06/18 1311 END OF REPORT DEPARTMENT OF PATHOLOGY, [address] [place] [address] Anders Jasso M.D. Director [facility] # [id number] Procedures Date CPT Code Description Status 02/04/2018 10349 Laparoscopy Cholecystectomy Completed 02/04/2018 44457 Laparoscopy Cholecystectomy Completed Encounters Type Date Location Provider CPT E/M Dx Office Visit 02/04/2018 [facility], [address] K80.00 7:00a Of [facility] Plan of Care 02/10/2018 - Bib Chappell MDK80.00 Calculus of gallbladder w acute cholecyst w/o obstructionFollow up:None needed Call with any problems or concerns
[2018-02-22] MEDS ORDERED: Morphine VIAL* 4 MG/ML VIAL (1 ml vial) ONE (05:36)
[2018-02-22] MEDS: NS 0.9% 1000 ML* 2,000 ML IV ONE ×2 (05:46→08:14)
[2018-02-22 06:23] LABS: ABS Basophils 0.1 10^3/ul (0-0.2); ABS Eosinophils 0 10^3/ul (0-0.6); ABS Lymphocytes 0.6 10^3/ul (1.0-4.8); ABS Monocytes 0.7 10^3/ul (0-0.8); ABS Neutrophils 13.5 10^3/ul (1.5-7.7); ABS Nucleated RBC 0 10^3/ul; Eosinophil % 0 % (0-6); Hematocrit 40 % (35-47); Hemoglobin 13.3 g/dl (12.0-16.0); Lymphocyte % 3.8 % (25-47); Mean Corpuscular HGB Conc 34 g/dl (31-36); Mean Corpuscular Hemoglobin 30 pg (27-31); Mean Corpuscular Volume 90 fL (80-97); Mean Platelet Volume 8.1 fL (7.4-10.4); Nucleated Red Blood Cells % 0; Platelet Count 353 10^3/ul (150-450); Red Blood Count 4.38 10^6/ul (4.00-5.40); Red Cell Distribution Width 13 % (10.5-15); White Blood Count 14.8 10^3/ul (3.5-10.8)
[2018-02-22 06:46] LABS: EGFR Non-African American 79.4 (>60)
[2018-02-22] MEDS ORDERED: Iohexol 300* (CONTRAST) 10 ML SDV IV ONE (07:42)
[2018-02-22 07:48] LABS: Urine Appearance Clear; Urine Blood 3+ (Negative); Urine Color Amber; Urine Ketones Trace (Negative); Urine Protein Negative (Negative); Urine Red Blood Cell 3+(>10/hpf) (Absent); Urine Specific Gravity 1.021 (1.010-1.030); Urine Urobilinogen Negative (Negative); Urine White Blood Cell 1+(6-10/hpf) (Absent)
--- NOTE | 2018-02-22 08:12 | ED ---
Progress - Progress Note Progress Note: This patient is a 42 year old F brought in by ambulance to [facility] with a chief complaint of worsening upper abdominal pain with nausea diarrhea, and vomiting for the past two days. Pain is 8/10 upon triage. Patient had cholecystectomy on 02/04/[address] Chappell. Patient reports dysuria. Patient took Hydrocodone yesterday morning with slight improvement but symptoms returned. Patient is being signed out, pending a urinalysis, stool culture, and CT Abd/ Pelvis, from Dr. Hernandez to Dr. Holbrook during a shift change. Re-Evaluation - Re-Evaluation 1 Re-Evaluation Time: 07:20 Change: Unchanged Comment: Patient reports nausea, vomiting, diarrhea (since surgery) no blood no mucus and vomiting. Patient denies fever, chills, CP, and SOB. Patient says that the morphine is helping with pain. She denies eating anything unusual last night besides going to [email or web address] and eating popcorn at the movies. Course/Dx - Course Course Of Treatment: This patient is a 42 year old F brought in by ambulance to [facility] with a chief complaint of worsening upper abdominal pain with nausea diarrhea, and vomiting for the past two days. Pain is 8/10 upon triage. Patient had cholecystectomy on 02/04/18. Patient reports dysuria. Patient took Hydrocodone yesterday morning with slight improvement but symptoms returned. Patient is being signed out, pending a urinalysis, stool culture, and CT Abd/ Pelvis, from Dr. Hernandez to Dr. Holbrook during a shift change. Abdominal and pelvic CT IMPRESSION: The patient is status post cholecystectomy. There is a small fluid collection. in the right upper quadrant in the gallbladder fossa measuring 5 cm in length x 1.5 cm in. greatest width in the region of the gallbladder fundus location. The remainder of the. fluid collection measures approximately 0.5 cm in greatest width. In addition there. appears to be mucosal thickening especially in the right colon suggestive of colitis. There may also be some mucosal thickening in the sigmoid colon. Dr. Martinez saw and examined the patient and he recommends admission to his services. At this point the patient is hemodynamically stable alert and oriented 3. - Diagnoses Provider Diagnoses: Upper abdominal pain Discharge - Sign-Out/Discharge Documenting (check all that apply): Patient Departure - Admit to Dr. Martinez, Receiving Sign-Out Receiving patient FROM: Geoffrey Hernandez - Pending a urinalysis, stool culture, and CT Abd/Pelvis - Discharge Plan Condition: Stable Disposition: ADMITTED TO [facility] - Billing Disposition and Condition Condition: STABLE Disposition: Admitted to [facility] - Attestation Statements Document Initiated by Chelsie: Yes Documenting Scribe: Rony Estrada Provider For Whom Kaeibe is Documenting (Include Credential): Otilio Holbrook MD Scribe Attestation: Rony Chowdary, scribed for Otilio Holbrook MD on 02/22/18 at 1838. Scribe Documentation Reviewed: Yes Provider Attestation: The documentation as recorded by the Rony campbell accurately reflects the service I personally performed and the decisions made by nd, Otilio Holbrook MD Diagnostics - Vital Signs Vital Signs Temp Pulse Resp BP Pulse Ox 02/22/18 08:05 136/76 02/22/18 05:46 20 02/22/18 05:09 97.4 F 83 20 132/71 96 - Laboratory Lab Results: Lab Results 02/22/18 02/22/18 02/22/18 Range/Units 06:11 06:11 07:36 WBC 14.8 H (3.5-10.8) 10^3/ul RBC 4.38 (4.00-5.40) 10^6/ul Hgb 13.3 (12.0-16.0) g/dl Hct 40 (35-47) % MCV 90 (80-97) fL MCH 30 (27-31) pg MCHC 34 (31-36) g/dl RDW 13 (10.5-15) % Plt Count 353 (150-450) 10^3/ul MPV 8.1 (7.4-10.4) fL Neut % (Auto) 90.9 H (38-83) % Lymph % (Auto) 3.8 L (25-47) % Amador % (Auto) 4.7 (0-7) % Eos % (Auto) 0 (0-6) % Baso % (Auto) 0.6 (0-2) % Absolute Neuts (auto) 13.5 H (1.5-7.7) 10^3/ul Absolute Lymphs (auto) 0.6 L (1.0-4.8) 10^3/ul Absolute Monos (auto) 0.7 (0-0.8) 10^3/ul Absolute Eos (auto) 0 (0-0.6) 10^3/ul Absolute Basos (auto) 0.1 (0-0.2) 10^3/ul Absolute Nucleated RBC 0 10^3/ul Nucleated RBC % 0 Sodium 142 (135-145) mmol/L Potassium 3.9 (3.5-5.0) mmol/L Chloride 108 (101-111) mmol/L Carbon Dioxide 25 (22-32) mmol/L Anion Gap 9 (2-11) mmol/L BUN 12 (6-24) mg/dL Creatinine 0.79 (0.51-0.95) mg/dL Est GFR ( Amer) 96.1 (>60) Est GFR (Non-Af Amer) 79.4 (>60) BUN/Creatinine Ratio 15.2 (8-20) Glucose 159 H (70-100) mg/dL Calcium 8.6 (8.6-10.3) mg/dL Total Bilirubin 2.30 H (0.2-1.0) mg/dL AST 411 H (13-39) U/L ALT 497 H (7-52) U/L Alkaline Phosphatase 244 H (34-104) U/L Total Protein 6.7 (6.4-8.9) g/dL Albumin 3.6 (3.2-5.2) g/dL Globulin 3.1 (2-4) g/dL Albumin/Globulin Ratio 1.2 (1-3) Lipase 26 (11.0-82.0) U/L Beta HCG, Quant < 0.60 mIU/mL Urine Color Linh Urine Appearance Clear Urine pH 5.0 (5-9) Ur Specific Antonito 1.021 (1.010-1.030) Urine Protein Negative (Negative) Urine Ketones Trace A (Negative) Urine Blood 3+ A (Negative) Urine Nitrate Negative (Negative) Urine Bilirubin 1+ A (Negative) Urine Urobilinogen Negative (Negative) Ur Leukocyte Esterase Negative (Negative) Urine WBC (Auto) 1+(6-10/hpf) A (Absent) Urine RBC (Auto) 3+(>10/hpf) A (Absent) Urine Bacteria Absent (Absent) Urine Glucose Negative (Negative) Result Diagrams: 02/22/18 06:11 02/22/18 06:11 Lab Statement: Any lab studies that have been ordered have been reviewed, and results considered in the medical decision making process. - CT Abdomen/Pelvis CT CT Interpretation Completed By: Radiologist - 08:48. The patient is status post cholecystectomy. There is a small fluid collection in the right upper quadrant in the gallbladder fossa measuring 5 cm in length x 1.5 cm in greatest width in the region of the gallbladder fundus location. The remainder of the fluid collection measures approximately 0.5 cm in greatest width. In addition there appears to be mucosal thickening especially in the right colon suggestive of colitis. There may also be some mucosal thickening in the sigmoid colon.
[2018-02-22] MEDS ORDERED: HYDROmorphone INJ* 0.5 MG/0.5 ML SYRINGE IV PRN (10:09)
--- NOTE | 2018-02-22 11:21 | HP ---
CC: [facility]; Dr. Antonio at [facility]. * HISTORY AND PHYSICAL UPDATE: DATE OF ADMISSION: 02/22/18 HISTORY OF PRESENT ILLNESS: Ms. Carranza is a 42-year-old female who is postoperative day 18 from a laparoscopic subtotal cholecystectomy for acute on chronic cholecystitis. She stayed in the hospital for 1 day following surgery and was discharged home with a SARA drain for planned followup. The patient underwent removal of SARA drain approximately 11 days ago. She was doing well up until Friday when patient started suffering with upper abdominal pain and nausea and inability to eat. It was accompanied with diarrhea, no fevers however. Pain is mostly in the upper abdomen, nonradiating. PAST MEDICAL HISTORY: Unchanged and includes obesity and arthritis. PAST SURGICAL HISTORY: Laparoscopic appendectomy, tonsillectomy, laparoscopies for ovarian cysts, and the laparoscopic subtotal cholecystectomy. MEDICATIONS: Included narcotics for postoperative pain that she has not really been taking. ALLERGIES: She is allergic to PENICILLIN. SOCIAL HISTORY: She is , lives with a roommate. She smokes intermittently and she is attending [employer] for studies. REVIEW OF SYSTEMS: No shortness of breath, no chest pain, abdominal pain as described, inability to tolerate liquids or solids, diarrhea. No dysuria, no back pain, no bleeding or clotting disorders, no complication of anesthesia in the past. PHYSICAL EXAMINATION GENERAL: She is afebrile. VITAL SIGNS: Stable. Blood pressure 129/76, heart rate is 79. She is alert and oriented x3, in mild distress. HEENT: Normocephalic, atraumatic. Sclerae are anicteric. Mucous membranes are dry. NECK: No lymphadenopathy. LUNGS: Clear to auscultation bilaterally. ABDOMEN: Soft, obese, tender on deep palpitation in the epigastrium and in the left side. She has well-healed surgical incisions. No ecchymosis or cellulitis. No hernias or masses noted. EXTREMITIES: With mild edema that is pitting. RECTAL: Exam not performed. DIAGNOSTIC STUDIES/LAB DATA: Patient underwent labs; these were reviewed, show white count of 14.8 with left shift, H and H 13/40, which is her baseline. Chemistry panel shows a normal basic metabolic panel, but with abnormalities in the LFTs with elevated bilirubin of 2.3 as well as abnormal transaminases and alk phos that are elevated. Lipase is normal. Patient underwent a CAT scan of the abdomen and pelvis; these images as well as report were reviewed. She has inflammation around the transverse colon along with small fluid collection in the gallbladder fossa that measures 5 x 1.5 cm; it is not suggestive of an abscess. The common bile duct was not commented on, but does seem mildly enlarged. IMPRESSION: Just under 3 weeks status post laparoscopic subtotal cholecystectomy with non-reconstitution of the cystic duct, who may be suffering with a bile leak versus retained common bile duct stone along with adjacent colitis that likely is secondary. RECOMMENDATIONS: My recommendation is admission, IV fluids, bowel rest, antibiotics, and a HIDA scan to rule out obstruction of the common bile duct and /or leakage through the cystic duct remnant. I described this to the patient, she understands. We will watch her closely with serial abdominal exams. She does not want a trip to the operating room at this time. We will keep a close eye on her. We will contact GI if there is concern for the possible need for ERCP. Patient understands the plan. We will admit her to our service. [id number]/[facility] #: [id number] [place]
[2018-02-22] MEDS ORDERED: HYDROmorphone INJ1* 1 MG/ML SYRINGE ONE (11:34)
[2018-02-22] MEDS: Ondansetron INJ* 2 MG/ML VIAL IV PRN ×2 (11:37→21:06)
[2018-02-22] MEDS: metroNIDAZOLE IV 500 MG/100ML* 500 MG/100 ML BAG IVPB SCH ×2 (11:53→21:08)
[2018-02-22] MEDS: Levofloxacin 500 MG IVPREMIX(* 500 MG/100 ML BAG IVPB SCH (13:27)
[2018-02-22] MEDS: Heparin VIAL(*) 5000 UNITS/ML VIAL (FIVE THOUSAND) SUBCUT SCH ×2 (14:23→23:14)
[2018-02-22] MEDS: Ketorolac INJ* 30 MG/ML 1 ML VIAL IV PRN ×2 (14:30→23:11)
[2018-02-23] MEDS: metroNIDAZOLE IV 500 MG/100ML* 500 MG/100 ML BAG IVPB SCH ×2 (03:45→12:17)
[2018-02-23] MEDS: Ondansetron INJ* 2 MG/ML VIAL IV PRN ×5 (03:49→22:24)
[2018-02-23 05:31] LABS: ABS Basophils 0.1 10^3/ul (0-0.2); ABS Eosinophils 0 10^3/ul (0-0.6); ABS Monocytes 1.1 10^3/ul (0-0.8); ABS Neutrophils 13.2 10^3/ul (1.5-7.7); ABS Nucleated RBC 0 10^3/ul; Eosinophil % 0.1 % (0-6); Hematocrit 36 % (35-47); Hemoglobin 12.1 g/dl (12.0-16.0); Lymphocyte % 6.5 % (25-47); Mean Corpuscular HGB Conc 33 g/dl (31-36); Mean Corpuscular Hemoglobin 30 pg (27-31); Mean Corpuscular Volume 91 fL (80-97); Mean Platelet Volume 8.3 fL (7.4-10.4); Nucleated Red Blood Cells % 0; Platelet Count 281 10^3/ul (150-450); Red Blood Count 4.01 10^6/ul (4.00-5.40); Red Cell Distribution Width 13 % (10.5-15); White Blood Count 15.4 10^3/ul (3.5-10.8)
[2018-02-23] MEDS: Heparin VIAL(*) 5000 UNITS/ML VIAL (FIVE THOUSAND) SUBCUT SCH ×3 (05:31→22:25)
[2018-02-23 05:50] LABS: EGFR Non-African American 92.9 (>60)
[2018-02-23] MEDS ORDERED: metroNIDAZOLE TAB* 250 MG PO SCH (14:00)
[2018-02-23] MEDS: Levofloxacin 500 MG IVPREMIX(* 500 MG/100 ML BAG IVPB SCH (14:11)
[2018-02-23] MEDS: Vancomycin CAP* 125 MG CAP PO SCH ×3 (14:13→20:37)
[2018-02-23] MEDS: Ketorolac INJ* 30 MG/ML 1 ML VIAL IV PRN ×2 (16:07→22:24)
--- NOTE | 2018-02-23 16:45 | PN ---
Progress Note - Progress Note Date of Service: 02/23/18 Note: S: Some abd discomfort, but recently had some pain and nausea medication w/ good effect. Would like to eat. O: Vital Signs - 8 hr 02/23/18 02/23/18 11:20 15:55 Temperature 98.5 F 98.7 F Pulse Rate 70 77 Respiratory 17 20 Rate Blood Pressure 136/69 118/61 (mmHg) O2 Sat by Pulse 99 100 Oximetry Intake and Output Last 24 Hours 02/21/18 02/22/18 02/23/18 02/24/18 06:59 06:59 06:59 06:59 Intake Total 3323 1103 Output Total 450 200 Balance 2873 903 Weight 230 lb 230 lb Intake: IV Fluids 3093 1003 ABX - FLAGYL 100 LR 993 1003 IVPB 100 ABX - FLAGYL 100 Medicated IV 110 Flagyl 110 Oral 120 0 Output: Urine 450 200 Gen: WN obese female in NAD; appears comfortable Heart: reg Lungs: clear Abd: obese; BS hypoactive; soft; mild LUQ tenderness; no sig tenderness elsewhere. No masses. stool: + C diff HIDA: Exam Date: 02/23/18 1012 ADM Status: ADM IN Order Information: NM HEPATOBIL VISUAL SCAN-HIDA Accession Number: [id number] CPT: 92681 Indication: Three-week status post subtotal cholecystectomy. Abdominal pain and elevated LFTs. Comparison: February 22, 2018 CT. Technique: 6.100 mCi of Tc-99m Choletec was injected IV. Serial anterior images of the abdomen were obtained immediately following radiopharmaceutical administration to 60 minutes. Report: There is normal hepatic uptake and excretion of the radiopharmaceutical with bowel activity visualized at approximately 30 minutes confirming patency of the common bile duct. No radiopharmaceutical accumulation at the gallbladder fossa evident at 60 minutes. IMPRESSION: #. Nonvisualization of the gallbladder corresponding with history of cholecystectomy. #. No scintigraphic evidence for biliary leak. #. Patent common bile duct documented. A: C diff colitis, 3 wks s/p cholecystectomy P: currently on po Vanco will order diet if roly po well, could conceivably be discharged tomorrow ID to see will recheck labs in a.m.
[2018-02-24] MEDS: Ondansetron INJ* 2 MG/ML VIAL IV PRN ×3 (02:23→12:57)
[2018-02-24] MEDS: Ketorolac INJ* 30 MG/ML 1 ML VIAL IV PRN (04:30)
[2018-02-24 05:40] LABS: ABS Basophils 0.1 10^3/ul (0-0.2); ABS Eosinophils 0.2 10^3/ul (0-0.6); ABS Lymphocytes 1.8 10^3/ul (1.0-4.8); ABS Monocytes 0.7 10^3/ul (0-0.8); ABS Neutrophils 8.7 10^3/ul (1.5-7.7); ABS Nucleated RBC 0 10^3/ul; Eosinophil % 1.4 %; Hematocrit 36 % (35-47); Mean Corpuscular HGB Conc 33 g/dl (31-36); Mean Corpuscular Hemoglobin 30 pg (27-31); Mean Corpuscular Volume 90 fL (80-97); Nucleated Red Blood Cells % 0.1; Platelet Count 299 10^3/ul (150-450); Red Blood Count 3.97 10^6/ul (4.00-5.40); Red Cell Distribution Width 13 % (10.5-15); White Blood Count 11.4 10^3/ul (3.5-10.8)
[2018-02-24] MEDS ORDERED: HYDROmorphone INJ1* 1 MG/ML SYRINGE IV PRN (05:45)
[2018-02-24] MEDS: Heparin VIAL(*) 5000 UNITS/ML VIAL (FIVE THOUSAND) SUBCUT SCH ×2 (05:53→14:16)
[2018-02-24 06:02] LABS: EGFR Non-African American 101.3 (>60)
[2018-02-24] MEDS: Vancomycin CAP* 125 MG CAP PO SCH ×3 (08:57→16:59)
--- NOTE | 2018-02-24 09:02 | PN ---
Progress Note - Progress Note Date of Service: 02/24/18 SOAP: Subjective: A little nauseated today but overall feels better Less loose BM's, less pain Tolerated po yesterday Objective: Temp Pulse Resp BP Pulse Ox 98.3 F 51 16 145/93 98 02/24/18 07:27 02/24/18 07:27 02/24/18 07:27 02/24/18 07:27 02/24/18 03:37 Intake & Output 02/22/18 02/23/18 02/24/18 02/25/18 06:59 06:59 06:59 06:59 Intake Total 3323 4393 Output Total 450 950 Balance 2873 3443 Weight 230 lb 230 lb Intake: IV Fluids 3093 2933 ABX - FLAGYL 100 LR 993 2933 IVPB 100 ABX - FLAGYL 100 Medicated IV 110 Flagyl 110 Oral 120 1360 Output: Urine 450 950 Other: Date of Last Bowel 02/24/2018 Movement # Bowel Movements 2 Estimated Stool Amount Medium PEX: Comfortable Lungs are clear Abd is soft and non-distended. Mild tenderness upper abdomen, no guarding Bowel sounds are present Laboratory Results - last 24 hr 02/24/18 02/24/18 05:16 05:16 WBC 11.4 H RBC 3.97 L Hgb 12.0 Hct 36 MCV 90 MCH 30 MCHC 33 RDW 13 Plt Count 299 MPV 8.0 Neut % (Auto) 76.2 Lymph % (Auto) 16.0 [place] % (Auto) 5.7 Eos % (Auto) 1.4 Baso % (Auto) 0.7 Absolute Neuts (auto) 8.7 H Absolute Lymphs (auto) 1.8 Absolute Monos (auto) 0.7 Absolute Eos (auto) 0.2 Absolute Basos (auto) 0.1 Absolute Nucleated RBC 0 Nucleated RBC % 0.1 Sodium 139 Potassium 3.2 L Chloride 107 Carbon Dioxide 27 Anion Gap 5 BUN 6 Creatinine 0.64 Est GFR ( Amer) 122.5 Est GFR (Non-Af Amer) 101.3 BUN/Creatinine Ratio 9.4 Glucose 107 H Calcium 8.0 L Total Bilirubin 0.50 AST 63 H ALT 258 H Alkaline Phosphatase 193 H Total Protein 5.6 L Albumin 2.9 L Globulin 2.7 Albumin/Globulin Ratio 1.1 HIDA scan reviewed-no bile leak, no evidence of biliary obstruction CT reviewed-no RUQ abscess, thickenened colon wall throughout C. diff toxin positive Assessment: C. diff colitis s/p cholecystectomy for acute cholecystitis and treatment with IV and oral antibiotics LFT's improving-I don't think these elevations were related to recent cholecystitis/surgery but secondary to colitis and are improving with appropriate treatment. Possibility of passed CBD stone exists but HIDA shows no evidence of obstruction at this point and would not pursue unless change. WBC trending down. Plan: Oral vancomycin started yesterday D/C's IV cipro and flagyl Diet ID consult today If tolerating po and OK with ID will d/c later today.
[2018-02-24] MEDS ORDERED: oxyCODONE/Acetamin 5/325 MG* TAB PO PRN (09:05)
[2018-02-24 16:38] VITALS: BP 144/77
== END 2018-02-24 17:20 | disposition home or self-care (01) | DRG 248 ==
LOC: ED 05:06 → SSU 10:09
PROVIDERS: ADMIT Surgery; ATTEND Surgery
DX: A04.72 Enterocolitis due to Clostridium difficile, not specified as recurrent (principal); E66.9 Obesity, unspecified; Z68.39 Body mass index [BMI] 39.0-39.9, adult; M19.90 Unspecified osteoarthritis, unspecified site; Z88.0 Allergy status to penicillin; Z72.0 Tobacco use; Z90.49 Acquired absence of other specified parts of digestive tract; Z98.890 Other specified postprocedural states
CPT/HCPCS: 36415; 74177; 78226; 80053; 81003; 81015; 83630; 83690; 84702; 85025; 87045; 87046; 87086; 87088; 87493; 87899; 99284; A9270-GY; A9537; J1170; J1644; J1885; J1956; J2270; J2405; J3490; Q9967